=== PATIENT | female | born 1995 | race Two or more races ===

== ENCOUNTER 2023-07-04 18:23 | Inpatient (IN) | payer OTHER ==
[~2023-07-04] VITALS: Ht 162.6 cm; Wt 69.3 kg
[2023-07-04] VITALS (18 sets, daily range): BP systolic 85–135; BP diastolic 38–72; PULSE 117–137; RESP 12–25; TEMP 98.2; O2SAT 89–100
[2023-07-04] MEDS ORDERED: SODIUM CHLORIDE 0.9% 1,000 ML IV SCH (21:15)
[2023-07-04] MEDS ORDERED: NITROGLYCERIN 0.4 MG SL TAB SL PRN (21:15)
[2023-07-04] MEDS ORDERED: MORPHINE SULFATE INJ 2 MG/ml SYRG IV PRN (21:15)
[2023-07-04] MEDS ORDERED: AZITHROMYCIN 500MG/ 250ML 250 ML IV ONE (21:15)
[2023-07-04] MEDS ORDERED: cefTRIAXone 1GM/50ML D5W 50 ML IV ONE (21:15)
[2023-07-04 21:45] LABS: Basophils # (auto) 0 10 ^3/uL (0-0.2); Eosinophils # (auto) 0 10 ^3/uL (0-0.8); Hemoglobin 12.2 g/dL (12.2-16.2); Lymphocytes # (auto) 0.4 10 ^3/uL (0.4-5.4); Lymphocytes % (auto) 2.8 % (10.0-50.0); Mean Corpuscular Hemoglobin 29.8 pg (28.0-32.0); Mean Corpuscular Hgb Conc. 32.1 g/dL (32.0-36.0); Mean Corpuscular Volume 92.7 fL (80.0-100.0); Monocytes # (auto) 0.2 10 ^3/uL (0-1.3); Monocytes % (auto) 1.1 % (0.0-12.0); Neutrophils # (auto) 14.7 10 ^3/uL (1.6-8.6); Neutrophils % (auto) 96.1 % (37.0-80.0); White Blood Cell 15.3 10^3/uL (4.4-10.8)
[2023-07-04] MEDS: PROPOFOL 100 ML IV SCH (21:45)
[2023-07-04] MEDS ORDERED: IPRATROPIUM BROM 0.5 MG/2.5ML INH SOL NEB PRN (21:45)
[2023-07-04 21:52] LABS: Urine Bacteria NONE SEEN /hpf (None Seen); Urine Blood 2+ /uL (Negative); Urine Clarity Clear (Clear); Urine Color Colorless (Yellow); Urine Mucus FEW (None Seen); Urine Protein, UAD Negative (Negative); Urine Specific Gravity 1.021 (1.001-1.035); Urine Urobilinogen Normal (Negative); Urine WBC 1 /hpf (0 - 5)
[2023-07-04] MEDS: fentaNYL Drip 2500mCg/250mlNS 250 ML IV SCH (22:16)
[2023-07-04 22:20] LABS: Alanine Aminotransferase 30 U/L (7-40); Albumin 4.2 g/dL (3.2-4.8); Alkaline Phosphatase 51 U/L (46-116); Anion Gap 16 (5-15); Aspartate Aminotransferase 16 U/L (13-40); BUN/Creatinine Ratio 8.7 (10.0-20.0); Bilirubin, Total 0.2 mg/dL (0.2-1.0); Blood Urea Nitrogen 8 mg/dL (9-23); Calcium 7.3 mg/dL (8.5-10.1); Carbon Dioxide 15 mmol/L (20-30); Chloride 110 mmol/L (98-107); Glucose 253 mg/dL (74-106); Potassium 3.1 mmol/L (3.5-5.1); Sodium 141 mmol/L (136-145); Total Protein 6.9 g/dL (5.7-8.2)
[2023-07-04] MEDS: methylPREDNISolone SOD SUCC 125 MG/2 ML VL IV SCH (22:25)
[2023-07-04] MEDS: ONDANSETRON HCL 4 MG/2 ML VIAL IV PRN (22:59)
[2023-07-04] MEDS: SODIUM CHLORIDE 0.9% 1,000 ML IV SCH (23:15)
[2023-07-04] MEDS ORDERED: SODIUM CHLORIDE 0.9% 500 ML IV ONE (23:15)
[2023-07-04] MEDS ORDERED: SODIUM BICARBONATE 8.4 % INJ 50ML VIAL IV ONE (23:15)
[2023-07-04] MEDS ORDERED: POTASSIUM CHL 20MEQ/100ML 100 ML IV ONE (23:15)
[2023-07-04 23:20] LABS: Base Excess -14.5 mmol/L (-2.0-2.0)
[2023-07-05] VITALS (94 sets, daily range): BP systolic 85–144; BP diastolic 38–79; PULSE 80–137; RESP 11–33; TEMP 98.2–99.1; O2SAT 94–100
[2023-07-05 00:12] LABS: Lactic Acid w/Reflex 7.5 mmol/L (0.4-2.0)
[2023-07-05] MEDS: PROPOFOL 100 ML IV SCH ×2 (01:30→07:53)
[2023-07-05 02:51] LABS: Base Excess -10.9 mmol/L (-2.0-2.0)
[2023-07-05] MEDS ORDERED: SODIUM BICARBONATE 50ML VIAL 100 ML in SOD CHL 0.45% 1,000 ML IV ONE (03:15)
[2023-07-05] MEDS ORDERED: SODIUM CHLORIDE 0.9% 500 ML IV ONE (03:15)
[2023-07-05 04:09] LABS: Basophils # (auto) 0 10 ^3/uL (0-0.2); Eosinophils # (auto) 0 10 ^3/uL (0-0.8); Hematocrit 35.1 % (36.0-46.0); Hemoglobin 11.4 g/dL (12.2-16.2); Lymphocytes # (auto) 0.4 10 ^3/uL (0.4-5.4); Lymphocytes % (auto) 3.2 % (10.0-50.0); Mean Corpuscular Hemoglobin 30.6 pg (28.0-32.0); Mean Corpuscular Hgb Conc. 32.5 g/dL (32.0-36.0); Mean Corpuscular Volume 94.1 fL (80.0-100.0); Monocytes # (auto) 0.2 10 ^3/uL (0-1.3); Monocytes % (auto) 1.8 % (0.0-12.0); Neutrophils # (auto) 12.8 10 ^3/uL (1.6-8.6); Red Blood Cells 3.73 10^6/uL (4.0-5.20); Red Cell Distribution Width 13.3 % (11.8-14.3); White Blood Cell 13.5 10^3/uL (4.4-10.8)
[2023-07-05 04:20] LABS: Alanine Aminotransferase 27 U/L (7-40); Albumin 3.9 g/dL (3.2-4.8); Alkaline Phosphatase 43 U/L (46-116); Anion Gap 11 (5-15); Aspartate Aminotransferase 13 U/L (13-40); BUN/Creatinine Ratio 8.9 (10.0-20.0); Blood Urea Nitrogen 7 mg/dL (9-23); Calcium 7.4 mg/dL (8.5-10.1); Carbon Dioxide 15 mmol/L (20-30); Chloride 111 mmol/L (98-107); Glucose 245 mg/dL (74-106); Potassium 4.2 mmol/L (3.5-5.1); Sodium 137 mmol/L (136-145)
[2023-07-05 04:21] LABS: Bilirubin, Total 0.2 mg/dL (0.2-1.0); Total Protein 6.4 g/dL (5.7-8.2)
[2023-07-05] MEDS ORDERED: SODIUM BICARBONATE 8.4 % INJ 50ML VIAL IV ONE (04:32)
[2023-07-05] MEDS: ACETAMINOPHEN 325 MG TAB PO PRN ×2 (04:54→20:46)
[2023-07-05] MEDS: LEVALBUTEROL HCL 1.25 MG/3 ML NEB NEB SCH ×3 (06:00→19:30)
[2023-07-05 06:59] LABS: Base Excess -6.8 mmol/L (-2.0-2.0)
[2023-07-05] MEDS: ONDANSETRON HCL 4 MG/2 ML VIAL IV PRN (07:23)
[2023-07-05] MEDS: IPRATROPIUM BROM 0.5 MG/2.5ML INH SOL NEB PRN ×3 (08:39→19:30)
[2023-07-05] MEDS: ALBUTEROL SULF 2.5 MG/0.5ML(0.5%) NEB SOLN NEB PRN ×2 (08:40→16:47)
[2023-07-05] MEDS: cefTRIAXone 1GM/50ML D5W 50 ML IV SCH (08:56)
[2023-07-05] MEDS: PANTOPRAZOLE 40 MG/10 ML VIAL INJ IV SCH (08:56)
[2023-07-05 09:29] LABS: Respiratory Syncytial Virus Ag Positive
[2023-07-05 10:24] LABS: Base Excess -5.1 mmol/L (-2.0-2.0)
[2023-07-05] MEDS ORDERED: EPINEPHrine HCL 0.5 ML NEB ONE (10:39)
[2023-07-05] MEDS: methylPREDNISolone SOD SUCC 125 MG/2 ML VL IV SCH ×2 (10:40→21:38)
[2023-07-05] MEDS ORDERED: EPINEPHrine HCL 0.5 ML NEB NEB ONE (10:45)
[2023-07-05] MEDS: ENOXAPARIN SOD 40 MG/0.4 ML SYRINGE SC SCH (10:56)
[2023-07-05] MEDS: AZITHROMYCIN 500MG/ 250ML 250 ML IV SCH (10:56)
[2023-07-05] MEDS: SODIUM CHLORIDE 0.9% 1,000 ML IV SCH (11:01)
[2023-07-05] MEDS: guaiFENesin-CODEINE Liq 5 ML UD GT PRN ×3 (12:22→20:39)
[2023-07-05] MEDS: THROAT LOZENGES(CEPASTAT) MT PRN ×3 (13:30→22:44)
[2023-07-05] MEDS: fentaNYL Drip 2500mCg/250mlNS 250 ML IV SCH (21:45)
[2023-07-06] VITALS (25 sets, daily range): BP systolic 86–111; BP diastolic 47–76; PULSE 76–127; RESP 14–20; TEMP 98–98.2; O2SAT 95–99
[2023-07-06] MEDS: cefTRIAXone 1GM/50ML D5W 50 ML IV SCH (09:00)
[2023-07-06] MEDS: methylPREDNISolone SOD SUCC 125 MG/2 ML VL IV SCH ×2 (10:00→21:10)
[2023-07-06] MEDS: ENOXAPARIN SOD 40 MG/0.4 ML SYRINGE SC SCH (10:00)
[2023-07-06] MEDS: PANTOPRAZOLE 40 MG/10 ML VIAL INJ IV SCH (10:00)
[2023-07-06] MEDS ORDERED: IPRATROPIUM BROM 0.5 MG/2.5ML INH SOL ONE (10:08)
[2023-07-06] MEDS ORDERED: ALBUTEROL SULF 2.5 MG/0.5ML(0.5%) NEB SOLN ONE (10:08)
[2023-07-06] MEDS ORDERED: METHOCARBAMOL 500 MG TAB ONE (11:46)
[2023-07-06] MEDS: AZITHROMYCIN 500MG/ 250ML 250 ML IV SCH (12:00)
[2023-07-06] MEDS: ALBUTEROL SULF 2.5 MG/0.5ML(0.5%) NEB SOLN NEB PRN (14:23)
[2023-07-06] MEDS: IPRATROPIUM BROM 0.5 MG/2.5ML INH SOL NEB PRN (14:23)
[2023-07-06] MEDS ORDERED: ALBUTEROL SULF 2.5 MG/0.5ML(0.5%) NEB SOLN NEB PRN (15:00)
[2023-07-06] MEDS ORDERED: IPRATROPIUM BROM 0.5 MG/2.5ML INH SOL NEB PRN (15:00)
[2023-07-06 16:14] LABS: Chloride 110 mmol/L (98-107); Sodium 141 mmol/L (136-145)
[2023-07-06 16:15] LABS: Anion Gap 9 (5-15); Calcium 8.1 mg/dL (8.7-10.4); Carbon Dioxide 22 mmol/L (20-30)
[2023-07-06 16:20] LABS: BUN/Creatinine Ratio 13.1 (10.0-20.0); Blood Urea Nitrogen 8 mg/dL (9-23); Glucose 147 mg/dL (74-106)
[2023-07-06 16:21] LABS: Magnesium 2.3 mg/dL (1.6-2.6)
[2023-07-06] MEDS: THROAT LOZENGES(CEPASTAT) MT PRN ×3 (16:30→22:16)
[2023-07-06] MEDS: guaiFENesin-CODEINE Liq 5 ML UD GT PRN ×2 (16:30→20:30)
[2023-07-06] MEDS: ACETAMINOPHEN 325 MG TAB PO PRN (16:30)
[2023-07-06] MEDS: ALBUTEROL SULF 2.5 MG/0.5ML(0.5%) NEB SOLN NEB SCH ×2 (19:06→22:23)
[2023-07-06] MEDS: IPRATROPIUM BROM 0.5 MG/2.5ML INH SOL NEB SCH ×2 (19:06→22:23)
[2023-07-06] MEDS: METHOCARBAMOL 500 MG TAB PO PRN (19:54)
[2023-07-07] VITALS (35 sets, daily range): BP systolic 92–123; BP diastolic 56–84; PULSE 56–109; RESP 10–53; TEMP 98.1–98.8; O2SAT 94–100
[2023-07-07] MEDS: IPRATROPIUM BROM 0.5 MG/2.5ML INH SOL NEB SCH ×6 (02:15→22:44)
[2023-07-07] MEDS: ALBUTEROL SULF 2.5 MG/0.5ML(0.5%) NEB SOLN NEB SCH ×6 (02:15→22:44)
[2023-07-07] MEDS: THROAT LOZENGES(CEPASTAT) MT PRN ×7 (02:27→22:20)
[2023-07-07] MEDS: guaiFENesin-CODEINE Liq 5 ML UD GT PRN ×4 (04:48→20:08)
[2023-07-07] MEDS: METHOCARBAMOL 500 MG TAB PO PRN ×2 (04:48→20:08)
[2023-07-07] MEDS: ACETAMINOPHEN 325 MG TAB PO PRN ×2 (04:55→09:33)
[2023-07-07 08:04] LABS: Basophils # (auto) 0 10 ^3/uL (0-0.2); Basophils % (auto) 0.1 % (0.0-2.0); Eosinophils # (auto) 0 10 ^3/uL (0-0.8); Hematocrit 36.2 % (36.0-46.0); Hemoglobin 11.9 g/dL (12.2-16.2); Lymphocytes # (auto) 1.5 10 ^3/uL (0.4-5.4); Lymphocytes % (auto) 8.3 % (10.0-50.0); Mean Corpuscular Hemoglobin 30.2 pg (28.0-32.0); Mean Corpuscular Hgb Conc. 32.7 g/dL (32.0-36.0); Mean Corpuscular Volume 92.2 fL (80.0-100.0); Monocytes # (auto) 0.9 10 ^3/uL (0-1.3); Monocytes % (auto) 4.9 % (0.0-12.0); Neutrophils # (auto) 15.8 10 ^3/uL (1.6-8.6); Neutrophils % (auto) 86.7 % (37.0-80.0); Red Blood Cells 3.93 10^6/uL (4.0-5.20); Red Cell Distribution Width 13.3 % (11.8-14.3); White Blood Cell 18.3 10^3/uL (4.4-10.8)
[2023-07-07 08:16] LABS: Alanine Aminotransferase 27 U/L (7-40); Alkaline Phosphatase 44 U/L (46-116); Anion Gap 5 (5-15); Aspartate Aminotransferase 17 U/L (13-40); BUN/Creatinine Ratio 13.6 (10.0-20.0); Blood Urea Nitrogen 8 mg/dL (9-23); Calcium 8.4 mg/dL (8.5-10.1); Carbon Dioxide 25 mmol/L (20-30); Chloride 107 mmol/L (98-107); Glucose 129 mg/dL (74-106); Potassium 4.4 mmol/L (3.5-5.1); Sodium 137 mmol/L (136-145)
[2023-07-07 08:18] LABS: Bilirubin, Total 0.3 mg/dL (0.2-1.0); Total Protein 6.7 g/dL (5.7-8.2)
[2023-07-07 09:21] LABS: Base Excess 0.2 mmol/L (-2.0-2.0)
[2023-07-07] MEDS: cefTRIAXone 1GM/50ML D5W 50 ML IV SCH (09:32)
[2023-07-07] MEDS: PANTOPRAZOLE 40 MG/10 ML VIAL INJ IV SCH (10:34)
[2023-07-07] MEDS: methylPREDNISolone SOD SUCC 125 MG/2 ML VL IV SCH ×2 (10:34→22:20)
[2023-07-07] MEDS: AZITHROMYCIN 500MG/ 250ML 250 ML IV SCH (10:35)
[2023-07-07] MEDS: ENOXAPARIN SOD 40 MG/0.4 ML SYRINGE SC SCH (10:35)
[2023-07-07] MEDS: SALINE 0.65 % NASAL SPRAY 45ML BOTTLE EACHNOSTRI SCH ×3 (11:34→22:19)
[2023-07-07] MEDS ORDERED: IOHEXOL 350 MG/ML 100ML IJ ONE (12:23)
[2023-07-08] VITALS (24 sets, daily range): BP systolic 110–133; BP diastolic 59–92; PULSE 69–112; RESP 10–24; TEMP 98.1–99.5; O2SAT 93–100
[2023-07-08] MEDS: ALBUTEROL SULF 2.5 MG/0.5ML(0.5%) NEB SOLN NEB SCH ×6 (02:44→22:26)
[2023-07-08] MEDS: IPRATROPIUM BROM 0.5 MG/2.5ML INH SOL NEB SCH ×6 (02:44→22:26)
[2023-07-08] MEDS: THROAT LOZENGES(CEPASTAT) MT PRN ×6 (02:59→19:59)
[2023-07-08] MEDS: ONDANSETRON HCL 4 MG/2 ML VIAL IV PRN (03:03)
[2023-07-08 04:11] LABS: Basophils # (auto) 0 10 ^3/uL (0-0.2); Basophils % (auto) 0.1 % (0.0-2.0); Eosinophils # (auto) 0 10 ^3/uL (0-0.8); Lymphocytes # (auto) 1.4 10 ^3/uL (0.4-5.4); Lymphocytes % (auto) 10.1 % (10.0-50.0); Mean Corpuscular Hemoglobin 30.7 pg (28.0-32.0); Mean Corpuscular Hgb Conc. 33.3 g/dL (32.0-36.0); Mean Corpuscular Volume 92.2 fL (80.0-100.0); Monocytes # (auto) 0.6 10 ^3/uL (0-1.3); Monocytes % (auto) 4.4 % (0.0-12.0); Neutrophils % (auto) 85.4 % (37.0-80.0); Red Blood Cells 3.91 10^6/uL (4.0-5.20); Red Cell Distribution Width 13.1 % (11.8-14.3)
[2023-07-08] MEDS: guaiFENesin-CODEINE Liq 5 ML UD GT PRN ×4 (04:14→21:25)
[2023-07-08] MEDS: METHOCARBAMOL 500 MG TAB PO PRN ×3 (04:14→21:25)
[2023-07-08 04:18] LABS: Alanine Aminotransferase 28 U/L (7-40); Albumin 4.2 g/dL (3.2-4.8); Alkaline Phosphatase 50 U/L (46-116); Anion Gap 6 (5-15); Aspartate Aminotransferase 17 U/L (13-40); BUN/Creatinine Ratio 12.9 (10.0-20.0); Blood Urea Nitrogen 8 mg/dL (9-23); Calcium 8.5 mg/dL (8.7-10.4); Carbon Dioxide 26 mmol/L (20-30); Chloride 104 mmol/L (98-107); Glucose 160 mg/dL (74-106); Sodium 136 mmol/L (136-145); Total Protein 6.8 g/dL (5.7-8.2)
[2023-07-08 04:19] LABS: Bilirubin, Total 0.3 mg/dL (0.2-1.0)
[2023-07-08] MEDS: SALINE 0.65 % NASAL SPRAY 45ML BOTTLE EACHNOSTRI SCH ×4 (06:02→21:26)
[2023-07-08] MEDS: cefTRIAXone 1GM/50ML D5W 50 ML IV SCH (09:25)
[2023-07-08] MEDS: ENOXAPARIN SOD 40 MG/0.4 ML SYRINGE SC SCH (09:29)
[2023-07-08] MEDS: PANTOPRAZOLE 40 MG/10 ML VIAL INJ IV SCH (09:29)
[2023-07-08] MEDS: methylPREDNISolone SOD SUCC 125 MG/2 ML VL IV SCH ×2 (09:29→21:25)
[2023-07-08] MEDS: AZITHROMYCIN 500MG/ 250ML 250 ML IV SCH (10:22)
[2023-07-08] MEDS: LOPERAMIDE HCL 2 MG CAP/TAB PO PRN ×2 (15:17→21:25)
[2023-07-09] VITALS (23 sets, daily range): BP systolic 109–125; BP diastolic 70–96; PULSE 63–123; RESP 12–32; TEMP 97.8–98.7; O2SAT 94–99
[2023-07-09] MEDS: THROAT LOZENGES(CEPASTAT) MT PRN ×4 (00:07→21:28)
[2023-07-09] MEDS: IPRATROPIUM BROM 0.5 MG/2.5ML INH SOL NEB SCH ×6 (02:53→22:10)
[2023-07-09] MEDS: ALBUTEROL SULF 2.5 MG/0.5ML(0.5%) NEB SOLN NEB SCH ×6 (02:53→22:10)
[2023-07-09] MEDS: METHOCARBAMOL 500 MG TAB PO PRN ×2 (05:37→18:50)
[2023-07-09] MEDS: LOPERAMIDE HCL 2 MG CAP/TAB PO PRN (05:37)
[2023-07-09] MEDS: SALINE 0.65 % NASAL SPRAY 45ML BOTTLE EACHNOSTRI SCH ×4 (05:38→21:37)
[2023-07-09] MEDS: guaiFENesin-CODEINE Liq 5 ML UD GT PRN ×3 (05:38→18:50)
[2023-07-09] MEDS: ACETAMINOPHEN 325 MG TAB PO PRN (05:43)
[2023-07-09 07:32] LABS: Basophils # (auto) 0 10 ^3/uL (0-0.2); Eosinophils # (auto) 0 10 ^3/uL (0-0.8); Hematocrit 39.4 % (36.0-46.0); Lymphocytes # (auto) 2.5 10 ^3/uL (0.4-5.4); Lymphocytes % (auto) 17.1 % (10.0-50.0); Mean Corpuscular Hemoglobin 30.4 pg (28.0-32.0); Mean Corpuscular Volume 92.1 fL (80.0-100.0); Monocytes % (auto) 6.6 % (0.0-12.0); Neutrophils # (auto) 11.1 10 ^3/uL (1.6-8.6); Neutrophils % (auto) 76.3 % (37.0-80.0); Nucleated Red Blood Cells % 0.1 %; Red Blood Cells 4.28 10^6/uL (4.0-5.20); Red Cell Distribution Width 13.2 % (11.8-14.3); White Blood Cell 14.6 10^3/uL (4.4-10.8)
[2023-07-09 08:02] LABS: Alanine Aminotransferase 36 U/L (7-40); Albumin 4.3 g/dL (3.2-4.8); Alkaline Phosphatase 51 U/L (46-116); Anion Gap 7 (5-15); Aspartate Aminotransferase 10 U/L (13-40); BUN/Creatinine Ratio 15.4 (10.0-20.0); Bilirubin, Total 0.4 mg/dL (0.2-1.0); Blood Urea Nitrogen 10 mg/dL (9-23); Calcium 9.1 mg/dL (8.5-10.1); Carbon Dioxide 27 mmol/L (20-30); Chloride 101 mmol/L (98-107); Glucose 133 mg/dL (74-106); Potassium 4.3 mmol/L (3.5-5.1); Sodium 135 mmol/L (136-145)
[2023-07-09] MEDS: methylPREDNISolone SOD SUCC 125 MG/2 ML VL IV SCH ×2 (09:18→21:37)
[2023-07-09] MEDS: PANTOPRAZOLE 40 MG/10 ML VIAL INJ IV SCH (09:18)
[2023-07-09] MEDS: AZITHROMYCIN 500MG/ 250ML 250 ML IV SCH (09:19)
[2023-07-09] MEDS: cefTRIAXone 1GM/50ML D5W 50 ML IV SCH (09:19)
[2023-07-09] MEDS: ENOXAPARIN SOD 40 MG/0.4 ML SYRINGE SC SCH (09:19)
[2023-07-10] VITALS (27 sets, daily range): BP systolic 96–119; BP diastolic 52–71; PULSE 68–119; RESP 12–21; TEMP 98.3–98.5; O2SAT 94–100
[2023-07-10] MEDS: IPRATROPIUM BROM 0.5 MG/2.5ML INH SOL NEB SCH ×6 (02:09→22:04)
[2023-07-10] MEDS: ALBUTEROL SULF 2.5 MG/0.5ML(0.5%) NEB SOLN NEB SCH ×6 (02:09→22:04)
[2023-07-10] MEDS: ONDANSETRON HCL 4 MG/2 ML VIAL IV PRN (02:39)
[2023-07-10] MEDS: SALINE 0.65 % NASAL SPRAY 45ML BOTTLE EACHNOSTRI SCH ×4 (06:44→21:58)
[2023-07-10] MEDS: ENOXAPARIN SOD 40 MG/0.4 ML SYRINGE SC SCH (10:00)
[2023-07-10] MEDS: cefTRIAXone 1GM/50ML D5W 50 ML IV SCH (10:42)
[2023-07-10] MEDS: guaiFENesin-CODEINE Liq 5 ML UD GT PRN ×2 (10:42→21:56)
[2023-07-10] MEDS: PANTOPRAZOLE 40 MG/10 ML VIAL INJ IV SCH (10:43)
[2023-07-10] MEDS: methylPREDNISolone SOD SUCC 125 MG/2 ML VL IV SCH (10:43)
[2023-07-10] MEDS: AZITHROMYCIN 500MG/ 250ML 250 ML IV SCH (12:13)
[2023-07-10] MEDS ORDERED: FAMOTIDINE 20 MG TAB PO ONE (16:30)
[2023-07-10] MEDS: THROAT LOZENGES(CEPASTAT) MT PRN (16:35)
[2023-07-10] MEDS: BUDESONIDE (INHALATION) 0.5 MG/2 ML NEB NEB SCH (18:14)
[2023-07-10] MEDS: VANCOMYCIN HCL 125MG/5ML ORAL SOL PO SCH ×2 (18:18→21:57)
[2023-07-10] MEDS: METHOCARBAMOL 500 MG TAB PO PRN (21:57)
[2023-07-10] MEDS: metroNIDAZOLE 500 MG TAB PO SCH (21:57)
[2023-07-10] MEDS: FLORASTOR (S. BOULARDII) 250 MG CAP PO SCH (21:58)
[2023-07-11] VITALS (17 sets, daily range): BP systolic 97–113; BP diastolic 49–79; PULSE 87–119; RESP 14–20; TEMP 97.9–98.7; O2SAT 95–100
[2023-07-11] MEDS: ALBUTEROL SULF 2.5 MG/0.5ML(0.5%) NEB SOLN NEB SCH ×6 (01:52→21:57)
[2023-07-11] MEDS: IPRATROPIUM BROM 0.5 MG/2.5ML INH SOL NEB SCH ×6 (01:52→21:57)
[2023-07-11] MEDS: guaiFENesin-CODEINE Liq 5 ML UD GT PRN ×2 (03:48→20:34)
[2023-07-11] MEDS: ACETAMINOPHEN 325 MG TAB PO PRN (05:01)
[2023-07-11] MEDS: metroNIDAZOLE 500 MG TAB PO SCH ×3 (05:45→21:12)
[2023-07-11] MEDS: SALINE 0.65 % NASAL SPRAY 45ML BOTTLE EACHNOSTRI SCH ×4 (05:45→21:16)
[2023-07-11] MEDS: VANCOMYCIN HCL 125MG/5ML ORAL SOL PO SCH ×4 (05:45→21:13)
[2023-07-11] MEDS: BUDESONIDE (INHALATION) 0.5 MG/2 ML NEB NEB SCH ×2 (06:41→21:57)
[2023-07-11 07:39] LABS: Hematocrit 39.4 % (36.0-46.0); Hemoglobin 12.9 g/dL (12.2-16.2); Mean Corpuscular Hemoglobin 29.9 pg (28.0-32.0); Mean Corpuscular Hgb Conc. 32.8 g/dL (32.0-36.0); Mean Corpuscular Volume 91.2 fL (80.0-100.0); Red Blood Cells 4.32 10^6/uL (4.0-5.20); Red Cell Distribution Width 13.2 % (11.8-14.3); White Blood Cell 20.3 10^3/uL (4.4-10.8)
[2023-07-11 07:42] LABS: Basophils % (manual) 0 (0.0-2.0); Blast Cells 0; Eosinophils % (manual) 0 (0-7); Myelocytes % 0; Promyelocytes % 0; Reactive Lymphocytes 0
[2023-07-11 09:32] LABS: Chloride 102 mmol/L (98-107); Potassium 3.5 mmol/L (3.5-5.1); Sodium 136 mmol/L (136-145)
[2023-07-11 09:33] LABS: Anion Gap 5 (5-15); Calcium 8.3 mg/dL (8.5-10.1); Carbon Dioxide 29 mmol/L (20-30)
[2023-07-11 09:38] LABS: BUN/Creatinine Ratio 25.4 (10.0-20.0); Blood Urea Nitrogen 16 mg/dL (9-23); Glucose 95 mg/dL (74-106)
[2023-07-11 09:43] LABS: Band Neutrophils % (manual) 17; Lymphocytes % (manual) 20 (10.0-50.0); Metamyelocytes % 9; Monocytes % (manual) 8 (0-12); Platelet Estimate Adequate
[2023-07-11] MEDS: FAMOTIDINE 20 MG TAB PO SCH (09:58)
[2023-07-11] MEDS: ENOXAPARIN SOD 40 MG/0.4 ML SYRINGE SC SCH (09:58)
[2023-07-11] MEDS: FLORASTOR (S. BOULARDII) 250 MG CAP PO SCH ×2 (09:58→21:13)
[2023-07-11] MEDS ORDERED: POTASSIUM CHL 20 Meq TABLET PO ONE (16:00)
[2023-07-11] MEDS: METHOCARBAMOL 500 MG TAB PO PRN (20:35)
[2023-07-12] VITALS (16 sets, daily range): BP systolic 93–106; BP diastolic 57–68; PULSE 81–117; RESP 14–19; TEMP 97.9–98.5; O2SAT 95–100
[2023-07-12] MEDS: IPRATROPIUM BROM 0.5 MG/2.5ML INH SOL NEB SCH ×6 (04:10→22:15)
[2023-07-12] MEDS: ALBUTEROL SULF 2.5 MG/0.5ML(0.5%) NEB SOLN NEB SCH ×6 (04:10→22:15)
[2023-07-12 05:36] LABS: Basophils # (auto) 0 10 ^3/uL (0-0.2); Eosinophils # (auto) 0.2 10 ^3/uL (0-0.8); Eosinophils % (auto) 1.6 % (0.0-7.0); Hematocrit 38.8 % (36.0-46.0); Hemoglobin 12.8 g/dL (12.2-16.2); Lymphocytes # (auto) 5.7 10 ^3/uL (0.4-5.4); Mean Corpuscular Volume 90.9 fL (80.0-100.0); Monocytes # (auto) 1.2 10 ^3/uL (0-1.3); Monocytes % (auto) 8.1 % (0.0-12.0); Neutrophils # (auto) 7.8 10 ^3/uL (1.6-8.6); Neutrophils % (auto) 52.3 % (37.0-80.0); Nucleated Red Blood Cells % 0.1 %; Red Blood Cells 4.26 10^6/uL (4.0-5.20); Red Cell Distribution Width 13.2 % (11.8-14.3)
[2023-07-12] MEDS: VANCOMYCIN HCL 125MG/5ML ORAL SOL PO SCH ×4 (06:05→22:10)
[2023-07-12] MEDS: metroNIDAZOLE 500 MG TAB PO SCH ×3 (06:05→22:10)
[2023-07-12] MEDS: SALINE 0.65 % NASAL SPRAY 45ML BOTTLE EACHNOSTRI SCH ×4 (06:08→22:12)
[2023-07-12] MEDS: BUDESONIDE (INHALATION) 0.5 MG/2 ML NEB NEB SCH ×2 (06:32→22:15)
[2023-07-12] MEDS: FLORASTOR (S. BOULARDII) 250 MG CAP PO SCH ×2 (09:15→22:10)
[2023-07-12] MEDS: FAMOTIDINE 20 MG TAB PO SCH (09:15)
[2023-07-12] MEDS: ENOXAPARIN SOD 40 MG/0.4 ML SYRINGE SC SCH (09:16)
[2023-07-12] MEDS: guaiFENesin-CODEINE Liq 5 ML UD GT PRN (20:11)
[2023-07-12] MEDS: METHOCARBAMOL 500 MG TAB PO PRN (20:11)
[2023-07-12] MEDS: CHOLESTYRAMINE 4 GM POWDER GT SCH (21:15)
[2023-07-13] VITALS (13 sets, daily range): BP systolic 96–111; BP diastolic 55–73; PULSE 83–111; RESP 18–20; TEMP 36.8; O2SAT 95–100
[2023-07-13] MEDS: ALBUTEROL SULF 2.5 MG/0.5ML(0.5%) NEB SOLN NEB SCH ×4 (02:17→14:29)
[2023-07-13] MEDS: IPRATROPIUM BROM 0.5 MG/2.5ML INH SOL NEB SCH ×4 (02:17→14:29)
[2023-07-13] MEDS: metroNIDAZOLE 500 MG TAB PO SCH (05:41)
[2023-07-13] MEDS: VANCOMYCIN HCL 125MG/5ML ORAL SOL PO SCH ×2 (05:42→11:39)
[2023-07-13] MEDS: SALINE 0.65 % NASAL SPRAY 45ML BOTTLE EACHNOSTRI SCH ×2 (05:43→11:39)
[2023-07-13] MEDS: BUDESONIDE (INHALATION) 0.5 MG/2 ML NEB NEB SCH (07:22)
[2023-07-13] MEDS: FAMOTIDINE 20 MG TAB PO SCH (08:47)
[2023-07-13] MEDS: CHOLESTYRAMINE 4 GM POWDER GT SCH (08:47)
[2023-07-13] MEDS: METHOCARBAMOL 500 MG TAB PO PRN (08:47)
[2023-07-13] MEDS: FLORASTOR (S. BOULARDII) 250 MG CAP PO SCH (08:47)
[2023-07-13] MEDS: ENOXAPARIN SOD 40 MG/0.4 ML SYRINGE SC SCH (08:48)
[2023-07-13] MEDS: guaiFENesin-CODEINE Liq 5 ML UD GT PRN (08:48)
[2023-07-13] MEDS ORDERED: VANC125PO PO (14:15)
[2023-07-13] MEDS ORDERED: CHL4PW PO (14:15)
[2023-07-13] MEDS ORDERED: MET500T PO (14:15)
[2023-07-13] MEDS ORDERED: SACC250C PO (14:15)
[2023-07-13] MEDS ORDERED: ALBUAER3 IN (14:16)
== END 2023-07-13 14:55 | disposition home or self-care (01) | DRG 208 ==
LOC: ICU WEST 20:01 → TELE-EAST 07-10 16:22 → EAST 07-10 17:32 → TELE-EAST 07-10 17:33 → EAST 07-11 13:19
PROVIDERS: ADMIT Internal Medicine; ATTEND Internal Medicine
PROC: 5A1935Z Respiratory Ventilation, Less than 24 Consecutive Hours (ICD-10-PCS; principal; 2023-07-04)
PROC: 0BH17EZ Insertion of Endotracheal Airway into Trachea, Via Natural or Artificial Opening (ICD-10-PCS; 2023-07-04)
PROC: 5A09357 Assistance with Respiratory Ventilation, Less than 24 Consecutive Hours, Continuous Positive Airway Pressure (ICD-10-PCS; 2023-07-08)
PROC: 5A09357 Assistance with Respiratory Ventilation, Less than 24 Consecutive Hours, Continuous Positive Airway Pressure (ICD-10-PCS; 2023-07-09)
PROC: 5A09357 Assistance with Respiratory Ventilation, Less than 24 Consecutive Hours, Continuous Positive Airway Pressure (ICD-10-PCS; 2023-07-10)
PROC: 5A09357 Assistance with Respiratory Ventilation, Less than 24 Consecutive Hours, Continuous Positive Airway Pressure (ICD-10-PCS; 2023-07-11)
PROC: 5A09357 Assistance with Respiratory Ventilation, Less than 24 Consecutive Hours, Continuous Positive Airway Pressure (ICD-10-PCS; 2023-07-12)
DX: J96.01 Acute respiratory failure with hypoxia (principal); A04.72 Enterocolitis due to Clostridium difficile, not specified as recurrent; J45.909 Unspecified asthma, uncomplicated; Z81.8 Family history of other mental and behavioral disorders; F90.9 Attention-deficit hyperactivity disorder, unspecified type; F41.9 Anxiety disorder, unspecified
CPT/HCPCS: 36415; 36600; 71045; 71275; 74018; 80048; 80053; 81001; 81025; 82805; 82962; 83036; 83605; 83735; 84443; 84484; 85007; 85025; 85027; 85379; 87070; 87081; 87205; 87493; 87807; 93970; 94002; 94003; 94640; 94660; 97110; 97116; 97163; 97530; C9113; G0378; J0696; J2405; J2704; J3480

== ENCOUNTER → 2023-09-28 | Outpatient (CLI) | payer OTHER ==
[~2023-09-28] MED LIST: ALBUAER3 IN; ALBUTEROL SULF 2.5 MG/0.5ML(0.5%) NEB SOLN ONE; CHL4PW PO; MET500T PO; SACC250C PO; VANC125PO PO
== END | disposition home or self-care (01) ==
LOC: RT 14:22
PROVIDERS: ATTEND Internal Medicine Pulmonary Disease
DX: R06.02 Shortness of breath (principal)
CPT/HCPCS: 94060; 94727; 94729

== ENCOUNTER 2025-01-08 08:46 | Day surgery (SDC) | payer OTHER ==
[2025-01-02 11:46] LABS: Urine Bacteria FEW /hpf (None Seen); Urine Blood TRACE /uL (Negative); Urine Clarity Clear (Clear); Urine Color Light-Yellow (Yellow); Urine Mucus FEW (None Seen); Urine Protein, UAD Negative (Negative); Urine Specific Gravity 1.021 (1.001-1.035); Urine Squamous Epithelial Cell FEW /hpf (<5); Urine Urobilinogen Normal (Negative); Urine WBC < 1 /HPF (0-5); Urine pH 6.5 (5.0-9.0)
[2025-01-02 11:51] LABS: Alanine Aminotransferase 17 U/L (7-40); Albumin 4.7 g/dL (3.2-4.8); Alkaline Phosphatase 55 U/L (46-116); Anion Gap 7 (5-15); Aspartate Aminotransferase 14 U/L (13-40); BUN/Creatinine Ratio 18.1 (10.0-20.0); Blood Urea Nitrogen 13 mg/dL (9-23); Calcium 9.7 mg/dL (8.7-10.4); Carbon Dioxide 28 mmol/L (20-31); Chloride 103 mmol/L (98-107); Glucose 91 mg/dL (74-106); Sodium 138 mmol/L (136-145); Total Protein 7.4 g/dL (5.7-8.2)
[2025-01-02 11:52] LABS: Basophils # (auto) 0 10 ^3/uL (0-0.2); Basophils % (auto) 0.3 % (0.0-2.0); Bilirubin, Total 0.5 mg/dL (0.2-1.0); Eosinophils # (auto) 0.1 10 ^3/uL (0-0.8); Eosinophils % (auto) 1.7 % (0.0-7.0); Hematocrit 39.4 % (36.0-46.0); Hemoglobin 13.2 g/dL (12.2-16.2); Lymphocytes # (auto) 2.4 10 ^3/uL (0.4-5.4); Lymphocytes % (auto) 33.2 % (10.0-50.0); Mean Corpuscular Hemoglobin 30.7 pg (28.0-32.0); Mean Corpuscular Hgb Conc. 33.4 g/dL (32.0-36.0); Monocytes # (auto) 0.6 10 ^3/uL (0-1.3); Monocytes % (auto) 8.7 % (0.0-12.0); Neutrophils % (auto) 56.1 % (37.0-80.0); Platelet Count (auto) 290 10^3/uL (140-450); Red Blood Cells 4.28 10^6/uL (4.0-5.20); Red Cell Distribution Width 12.9 % (11.8-14.3); White Blood Cell 7.1 10^3/uL (4.4-10.8)
[2025-01-02 11:59] LABS: Partial Thromboplastin Time 28.5 SEC (24.5-34.5); Prothrombin Time 10.6 sec (9.3-11.8)
[~2025-01-08] VITALS: Ht 160 cm; Wt 72.6 kg
[~2025-01-08 08:46] MED LIST changes: +ACET-1881 PO; -ALBUTEROL SULF 2.5 MG/0.5ML(0.5%) NEB SOLN ONE; -CHL4PW PO; +CHOL500021 OR; +DICL1GEL59 EX; +FLUT1AER3 IN; +IBUP200C3 PO; +LEVO25TA2 PO; -MET500T PO; -SACC250C PO; -VANC125PO PO
[2025-01-08] MEDS ORDERED: KETOROLAC TROMETH 30 MG/ML 1ML VIAL ONE (09:27)
[2025-01-08] MEDS ORDERED: DexAMETHasone SOD PHOS 10MG/1ML VIAL INJ ONE (09:27)
[2025-01-08] MEDS ORDERED: GLYCOPYRROLATE 0.2 MG/ML 1ML VIAL ONE (09:27)
[2025-01-08] MEDS ORDERED: MIDAZOLAM HCL 2MG/2ML 2ml VIAL (1mg/ml) ONE (09:27)
[2025-01-08] MEDS ORDERED: HYDROmorphone HCL 2 MG/ML VL/or syr ONE (09:27)
[2025-01-08] MEDS ORDERED: ROCURONIUM 10MG/ML 10ML VIAL IV ONE (09:27)
[2025-01-08] MEDS ORDERED: ROPIVACAINE 0.5% (5MG/ML) 20ML AMPULE IJ ONE (09:40)
[2025-01-08] MEDS: ceFAZolin 2 GM/D5W50ml 50 ML IV ONE (10:30)
[2025-01-08] MEDS: EPINEPHrine HCL 1 MG/1 ML AMP ONE (11:09)
--- NOTE | 2025-01-08 11:50 | DVHOP2 ---
Operative Report - 2 Report Details Date: 01/08/25 Preop Diagnosis: Right shoulder posttraumatic acromioclavicular arthritis Postop Diagnosis: Right shoulder posttraumatic acromioclavicular arthritis Surgeon: Ihsan Shafer MD Smash Hand: Vannessa JUAREZ Anesthesiologist: Miah Anesthesia: General, Regional Consent: The patient was informed of the risks and benefits of the procedure. These include but are not limited to complications of anesthesia, postoperative infection, incomplete relief of symptoms, recurrence of symptoms, damage to blood vessels, nerves and tendons, deep venous thrombosis, pulmonary embolism and possible need for repeat surgery in the future. Complications: None Estimated Blood Loss: Less than 5 cc Fluids: See anesthesia record Findings: Degenerative changes at the AC joint based on small osteophyte and sclerosis Indications for Surgery: Right shoulder acromioclavicular pain for eight years s/p fall to right shoulder with failed nonoperative management Name of Procedure Performed Right shoulder arthroscopic distal clavicle resection Procedure Details Procedure Details: Patient was brought to the operating room and placed on the table in supine position. General anesthetic was given. Shoulder block was performed. Ancef was given. Examination under anesthesia performed and was unremarkable. The patient was then transferred to the lateral decubitus position with the right shoulder up stabilized with a beanbag. Lower extremities well padded. Axillary roll applied. Right shoulder and upper extremity were prepped and draped in sterile fashion. The placed and was placed in longitudinal traction 15 lb with some abduction and flexion. Surgical time-out was performed verifying patient, laterality, and procedure. I inserted a spinal needle via posterior approach intra-articularly injected 30 cc of normal saline then made my posterior portal. I entered the joint with blunt cannula and trocar and began my inspection which revealed that she was entirely normal intra-articularly. I suctioned the joint as dry as possible and redirected my posterior cannula into the subacromial space. A lateral portal was made utilizing spinal needle for guidance. The patient was virtually normal in the subacromial space in terms of no significant bursitis, no evidence of rotator cuff tear or tendinitis and normal outlet. I did use radiofrequency device to remove some bursa to improve visualization. I made a portal anterior to the AC joint using spinal needle for guidance. I then used a shaver and radiofrequency device to remove fatty tissue/bursal tissue and the inferior capsule. Once adequate exposure was achieved, I then used a bur to perform distal clavicle resection. I went back and forth between the radiofrequency device and a bur as needed. I then suctioned the subacromial space as dry as possible and closed the portal sites with nylon and dressed the wound sterilely and applied shoulder sling. Patient tolerated the procedure well was brought to recovery room in stable condition. Condition Stable Disposition Home IHSAN SHAFER MD Jan 08, 2025 11:50
[2025-01-08 12:03] VITALS: PULSE 105; RESP 21; TEMP 97.3; O2SAT 97
[2025-01-08] MEDS ORDERED: HYDROmorphone HCL 2 MG/ML VL/or syr IV PRN (12:15)
--- NOTE | 2025-01-08 12:19 | DVHNC2 ---
Procedure - Consulted for post-op analgesia for right shoulder arthroscopy. 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 Has right shoulder discomfort that radiates to neck and down to 5th finger tip. Surgical plan is distal clavicle excision. Informed consent for right interscalene brachial plexus block obtained. Anatomical landmarks identified, sterile prep and drape. Time out done. Skin infiltrated with 1% lido. 2" 22G nerve stimulated needle used. Twitch elicited to 0.5 mAmps. 20 cc 0.5% PF ropivacaine with 4mg PF decadron incrementally injected with multiple negative aspirations. Patient reports good pain relief. Will follow as needed. CHRIST GOMEZ MD Jan 08, 2025 12:19
[2025-01-08] MEDS ORDERED: ONDANSETRON HCL 4 MG/2 ML VIAL ONE (12:25)
[2025-01-08] MEDS: ONDANSETRON HCL 4 MG/2 ML VIAL IV ONE (12:28)
[2025-01-08] MEDS ORDERED: IPRATROPIUM BROM 0.5 MG/2.5ML INH SOL ONE (13:57)
[2025-01-08] MEDS ORDERED: ALBUTEROL SULF 2.5 MG/0.5ML(0.5%) NEB SOLN ONE (13:57)
[2025-01-08] MEDS ORDERED: ALBUTEROL SULF 2.5 MG/0.5ML(0.5%) NEB SOLN NEB ONE (14:00)
[2025-01-08] MEDS ORDERED: IPRATROPIUM BROM 0.5 MG/2.5ML INH SOL NEB ONE (14:00)
[2025-01-08 14:46] VITALS: BP 136/87; PULSE 102; RESP 21; O2SAT 95
--- NOTE | 2025-01-08 15:27 | DVH ---
CHEST RADIOGRAPH Indication: POST SURGERY Technique: Single frontal view of the chest was obtained COMPARISON: XY CHEST PORTABLE on DOS: 07/08/23, XY CHEST PORTABLE on DOS: 07/06/23, XY CHEST XRAY 1 V IEW on DOS: 07/04/23 FINDINGS: Lines and Tubes: None Lungs: Right basilar subsegmental atelectasis. Pleura: No effusion. No pneumothorax. Cardiomediastinal contours: Unremarkable Bones: Unremarkable IMPRESSION: Right basilar subsegmental atelectasis.
== END 2025-01-08 15:00 | disposition home or self-care (01) ==
LOC: SUR 08:46
PROVIDERS: ATTEND Orthopaedic Surgery
DX: M19.111 Post-traumatic osteoarthritis, right shoulder (principal); G89.18 Other acute postprocedural pain; T14.90XS Injury, unspecified, sequela; E03.9 Hypothyroidism, unspecified; J45.909 Unspecified asthma, uncomplicated; Z79.890 Hormone replacement therapy; Z79.899 Other long term (current) drug therapy; Z90.722 Acquired absence of ovaries, bilateral; W19.XXXS Unspecified fall, sequela
CPT/HCPCS: 29824; 36415; 64415; 71045; 80053; 81001; 84702; 85025; 85610; 85730; J0171; J0690; J1100; J1171; J1885; J2250; J2405; J2795; A4565